=== PATIENT | female | born 1975 | race Two or more races ===

== ENCOUNTER 2020-05-15 10:28 | Outpatient (CLI) | payer OTHER ==
[~2020-05-15 10:28] MED LIST: PRENATAL1 TAB PO
[2020-05-17] MEDS ORDERED: FLONASE16 GM (14:42)
== END 2020-05-15 12:52 | disposition home or self-care (01) ==
LOC: LAB 10:28
PROVIDERS: ATTEND Obstetrics & Gynecology
DX: R05 Cough (principal); N84.0 Polyp of corpus uteri; Z20.828 Contact with and (suspected) exposure to other viral communicable diseases

== ENCOUNTER 2020-05-24 08:48 | Day surgery (SDC) | payer OTHER ==
[~2020-05-24 08:48] MED LIST changes: +FLONASE16 GM
== END 2020-05-24 17:27 | disposition home or self-care (01) ==
LOC: CIR.AMB 08:48 → ADM 05-29 10:30
PROVIDERS: ATTEND Obstetrics & Gynecology
DX: N84.0 Polyp of corpus uteri (principal); Z20.828 Contact with and (suspected) exposure to other viral communicable diseases